=== PATIENT | female | born 1995 | race Caucasian/White ===

== ENCOUNTER 2024-02-24 10:05 | Day surgery (SDC) | payer BC ==
--- NOTE | 2024-02-21 13:36 | EKG ---
Test Date: 2024-02-21 Test Time: 08:53:26 [employer] Member: NATALYA MEASUREMENT RESULTS: Intervals: Rate: 83 MT: 124 QRSD: 76 QT: 354 QTc: 415 [place]: P: 56 MT: 124 QRS: 82 T: 40 INTERPRETIVE STATEMENTS: Normal sinus rhythm Normal ECG No previous ECG available for comparison Electronically Signed On 02-21-24 13:35:59 CDT by Thomas Warner
[2024-02-24] MEDS: Ringers Lactate 1,000 ML IV ONE (10:40)
[2024-02-24] MEDS ORDERED: LIDOCAINE 1% MPF 30 ML VIAL ONE (11:35)
[2024-02-24] MEDS ORDERED: propofoL 200 MG/20 ML VIAL IV ONE (11:35)
[2024-02-24] MEDS ORDERED: GLYCOPYRROLATE 0.2 MG/ML SYR ONE (11:35)
[2024-02-24 14:01] VITALS: BP 100/70; TEMP 97.3; O2SAT 100
== END 2024-02-24 13:52 | disposition home or self-care (01) ==
LOC: OR 10:05 → EDSEX 12:00 → OR 13:52
PROVIDERS: ATTEND Surgery
PROC: 0DB78ZX Excision of Stomach, Pylorus, Via Natural or Artificial Opening Endoscopic, Diagnostic (ICD-10-PCS; 2024-02-24)
PROC: 0DB68ZX Excision of Stomach, Via Natural or Artificial Opening Endoscopic, Diagnostic (ICD-10-PCS; 2024-02-24)
PROC: 0DJD8ZZ Inspection of Lower Intestinal Tract, Via Natural or Artificial Opening Endoscopic (ICD-10-PCS; principal; 2024-02-24 12:00)
PROC: 0DB98ZX Excision of Duodenum, Via Natural or Artificial Opening Endoscopic, Diagnostic (ICD-10-PCS; 2024-02-24 12:00)
DX: K92.1 Melena (principal); K58.2 Mixed irritable bowel syndrome; R14.0 Abdominal distension (gaseous); K64.8 Other hemorrhoids; R10.13 Epigastric pain; K44.9 Diaphragmatic hernia without obstruction or gangrene; K29.50 Unspecified chronic gastritis without bleeding
CPT/HCPCS: 45378; 43239; 93005; 80048; 36415; 88312 ×2; 88305; J2704; J2001; J7120